=== PATIENT | female | born 1990 | race American Indian/Alaskan Native ===

== ENCOUNTER 2017-11-28 11:10 | Emergency (ER) | payer MEDICAID ==
[2017-11-28 11:27] VITALS: BP 95/62; PULSE 78; RESP 18; TEMP 97.9; O2SAT 98
--- NOTE | 2017-11-28 11:54 | RAD ---
HISTORY: Cough. SOB. COMPARISON: None available. TECHNIQUE: Chest PA and lateral FINDINGS: LUNGS: No focal consolidation. Please note that chest x-ray has limited sensitivity for the detection of pulmonary masses. PLEURA: No significant pleural effusion identified. No definite pneumothorax . CARDIOVASCULAR: The cardiomediastinal silhouette appears within normal limits of size. OSSEOUS STRUCTURES: No acute osseous abnormality identified. VISUALIZED UPPER ABDOMEN: Unremarkable. OTHER FINDINGS: Bilateral nipple rings. IMPRESSION: No acute findings.
--- NOTE | 2017-11-28 12:18 | C.PDOC ---
Time Seen by Provider: 11/28/17 11:28 Chief Complaint (Nursing): Cough, Cold, Congestion History Per: Patient Onset/Duration Of Symptoms: Days (about 3 weeks) Current Symptoms Are (Timing): Still Present Associated Symptoms: Sore Throat, Cough, Nasal Congestion Severity: Moderate Additional History Per: Prior Records Past Medical History Reviewed: Historical Data, Nursing Documentation, Vital Signs Vital Signs: Last Vital Signs Temp 97.9 F 11/28/17 11:24 Pulse 78 11/28/17 11:24 Resp 18 11/28/17 11:24 BP 95/62 L 11/28/17 11:24 Pulse Ox 98 11/28/17 11:24 - Medical History PMH: No Chronic Diseases Family History: States: Unknown Family Hx - Social History Hx Tobacco Use: No Hx Alcohol Use: No Hx Substance Use: No - Immunization History Hx Tetanus Toxoid Vaccination: Yes Hx Influenza Vaccination: No Hx Pneumococcal Vaccination: No Review Of Systems Except As Marked, All Systems Reviewed And Found Negative. Constitutional: Negative for: Fever ENT: Positive for: Nose Congestion, Throat Pain Cardiovascular: Negative for: Chest Pain Respiratory: Positive for: Cough, Shortness of Breath. Negative for: Hemoptysis Gastrointestinal: Negative for: Vomiting, Abdominal Pain, Diarrhea Genitourinary: Negative for: Dysuria Musculoskeletal: Negative for: Neck Pain, Leg Pain Skin: Negative for: Rash Neurological: Negative for: Weakness, Numbness Physical Exam - Physical Exam Appears: Non-toxic, No Acute Distress Skin: Normal Color, Warm, Dry, No Rash Head: Atraumatic, Normacephalic Eye(s): bilateral: Normal Inspection, PERRL, EOMI Throat: Normal Neck: Normal ROM, Supple Cardiovascular: Rhythm Regular Respiratory: Normal Breath Sounds, No Accessory Muscle Use Gastrointestinal/Abdominal: Soft, No Tenderness Back: No CVA Tenderness Extremity: Normal ROM, No Pedal Edema, No Calf Tenderness Neurological/Psych: Oriented x3, Normal Speech, Normal Motor, Normal Sensation ED Course And Treatment O2 Sat by Pulse Oximetry: 98 Pulse Ox Interpretation: Normal - Radiology CXR: Viewed By Me, Read By Radiologist CXR Interpretation: Yes: No Acute Disease Disposition Counseled Patient/Family Regarding: Studies Performed, Diagnosis, Need For Followup, Rx Given - Disposition Disposition: HOME/ ROUTINE Disposition Time: 12:17 Condition: STABLE Additional Instructions: Follow up with a primary doctor. Return to the ER if you develop high fever, shortness of breath, chest pain, worsening of symptoms or if you have any other concerns. Prescriptions: Albuterol HFA [Ventolin HFA 90 mcg/actuation (8 g)] 2 puff IH Q4 PRN #1 unit PRN Reason: Cough And Congestion predniSONE [predniSONE Tab] 2 tab PO DAILY #10 tab Instructions: Upper Respiratory Infection (ED) Forms: [employer] (Urdu) - Clinical Impression Clinical Impression: Upper respiratory infection, Persistent cough for 3 weeks or longer
== END 2017-11-28 12:26 | disposition home or self-care (01) ==
LOC: C.ER 11:10
DX: J06.9 Acute upper respiratory infection, unspecified (principal); R05 Cough

== ENCOUNTER 2018-03-27 10:08 | Emergency (ER) | payer MEDICAID ==
[2018-03-27 10:25] VITALS: BP 100/68; PULSE 75; RESP 18; TEMP 98.6; O2SAT 96
--- NOTE | 2018-03-27 10:38 | C.PDOC ---
History Of Present Illness 28 y/o female presents to the ER complaining of firm, non-tender lymph node in the right side of the neck. Patient denies having weight loss, head/ neck cancers, injuries, and infections. Time Seen by Provider: 03/27/18 10:32 Chief Complaint (Nursing): Abnormal Skin Integrity History Per: Patient History/Exam Limitations: no limitations Onset/Duration Of Symptoms: Days Current Symptoms Are (Timing): Still Present Severity: Moderate Past Medical History Reviewed: Historical Data, Nursing Documentation, Vital Signs Vital Signs: Last Vital Signs Temp 98.6 F 03/27/18 10:22 Pulse 75 03/27/18 10:22 Resp 18 03/27/18 10:22 BP 100/68 03/27/18 10:22 Pulse Ox 96 03/27/18 10:37 - Medical History PMH: No Chronic Diseases Surgical History: No Surg Hx Family History: States: No Known Family Hx - Social History Hx Tobacco Use: No Hx Alcohol Use: No Hx Substance Use: No - Immunization History Hx Tetanus Toxoid Vaccination: Yes Hx Influenza Vaccination: No Hx Pneumococcal Vaccination: No Review Of Systems Except As Marked, All Systems Reviewed And Found Negative. Physical Exam - Physical Exam Appears: Non-toxic, No Acute Distress Skin: Normal Color, Warm, Dry Head: Atraumatic, Normacephalic Eye(s): bilateral: Normal Inspection Nose: Normal Oral Mucosa: Moist Neck: Supple Lymphatic: Adenopathy (single, firm non- tender lymph node in right anterior cervical region), No Axilla Node Tenderness Chest: Symmetrical Cardiovascular: Rhythm Regular Respiratory: Normal Breath Sounds, No Rales, No Rhonchi, No Wheezing Neurological/Psych: Oriented x3, Normal Speech ED Course And Treatment O2 Sat by Pulse Oximetry: 96 (RA) Pulse Ox Interpretation: Normal Medical Decision Making Medical Decision Making: single enlarged non-tender, firm anterior R cervical LN, seem reactive normal axillary LN's no breast masses/tender (per pt) no alarm signs. watchful obs and opt f/u in 1 mo PRN Disposition Doctor Will See Patient In The: Office Counseled Patient/Family Regarding: Studies Performed, Diagnosis - Disposition Referrals: [facility] [Outside] [facility] [Outside] [facility] [Outside] Virgil Valenzuela MD [Staff Provider] - Disposition: HOME/ ROUTINE Disposition Time: 10:37 Condition: GOOD Additional Instructions: watch for progression or resolution of R neck lymph node usually a normal reaction to head/neck infections/allergies motrin 400 mg every 6 hours as needed for discomfort. Follow-up with our outpatient Clinic (free) or Dr. Valenzuela ([facility]) as needed in 3-4 weeks Instructions: Swollen Neck Nodes in Children Forms: [employer] (Korean) - Clinical Impression Clinical Impression: Lymphadenopathy of head and neck - Scribe Statement The provider has reviewed the documentation as recorded by the Ellen Perez Provider Attestation: All medical record entries made by the Ellen were at my direction and personally dictated by me. I have reviewed the chart and agree that the record accurately reflects my personal performance of the history, physical exam, medical decision making, and the department course for this patient. I have also personally directed, reviewed, and agree with the discharge instructions and disposition.
== END 2018-03-27 10:47 | disposition home or self-care (01) ==
LOC: C.ER 10:08
DX: R59.0 Localized enlarged lymph nodes (principal)

== ENCOUNTER 2018-08-20 11:36 | Emergency (ER) | payer MEDICAID ==
[2018-08-20 12:08] VITALS: BP 125/74; PULSE 94; RESP 18; TEMP 98.3; O2SAT 97
== END 2018-08-20 12:14 | disposition left against medical advice (07) ==
LOC: C.ER 11:36
DX: Z02.89 Encounter for other administrative examinations (principal); R59.9 Enlarged lymph nodes, unspecified